=== PATIENT | male | born 1935 | race Caucasian/White ===

== ENCOUNTER 2023-12-20 12:43 | Inpatient (IN) | payer MEDICARE ==
[2023-12-20] MEDS ORDERED: guaiFENesin 100 MG/5 ML Soln 5 ML UD Cup PO PRN (13:19)
[2023-12-20] MEDS ORDERED: Calcium Carbonate 500 MG Tab.Chew PO PRN (13:19)
[2023-12-20] MEDS: Cyclobenzaprine 10 MG Tab PO PRN (14:45)
[2023-12-20] MEDS: Acetaminophen 325 MG Tab PO PRN (14:46)
[2023-12-20] MEDS: LIDOCAINE PATCH TRDERM SCH (21:19)
[2023-12-21] MEDS: Lidocaine 4% 1 each Patch TOP SCH (09:31)
[2023-12-21] MEDS: Multivitamin Tab PO SCH (09:34)
[2023-12-21] MEDS: Rivaroxaban 15 MG Tab PO SCH (09:34)
[2023-12-21] MEDS: atorvaSTATin 10 MG Tab PO SCH (09:34)
[2023-12-21] MEDS: Cholecalciferol (Vitamin D3) 25 MCG Tab PO SCH (09:35)
[2023-12-21] MEDS: Bisoprolol 5 MG Tab PO SCH (09:35)
[2023-12-21] MEDS: amLODIPine 5 MG Tab PO SCH (09:35)
[2023-12-22 21:10] LABS: BILIRUBIN,URINE NEGATIVE (NEGATIVE); GLUCOSE,URINE NORMAL (NORMAL); KETONES,URINE NEGATIVE (NEGATIVE); LEUKOCYTE ESTERASE,URINE LARGE (NEGATIVE); NITRITE,URINE POSITIVE (NEGATIVE); OCCULT BLOOD,URINE MODERATE (NEGATIVE); PROTEIN,URINE 100 mg/dL (NEGATIVE); UROBILINOGEN,URINE NORMAL (NEGATIVE)
[2023-12-22 21:19] LABS: COLOR,URINE YELLOW (YELLOW)
[2023-12-22 21:20] LABS: APPEARANCE,URINE CLOUDY (CLEAR)
[2023-12-22 21:21] LABS: BACTERIA,URINE MANY (NS); SQUAMOUS EPITHELIAL CELLS,UR OCCASIONAL (NS,R,O); WBC,URINE 50-75 (0-5)
[2023-12-22] MEDS: Melatonin 3 MG Tab PO PRN (22:07)
[2023-12-22] MEDS: Sulfamethoxazole/Trimethoprim 800-160 MG Tab PO ONE (22:07)
[2023-12-23 09:41] LABS: BASOPHILS PERCENT AUTO 0.8 % (0.3-3.8); EOSINOPHILS ABSOLUTE AUTO 0.2 x10-3/uL (0.0-0.6); HEMATOCRIT 38.7 % (38.3-50.1); HEMOGLOBIN 12.9 g/dL (12.9-17.7); LYMPHOCYTES ABSOLUTE AUTO 1.6 x10-3/uL (0.5-4.5); MEAN CORPUSCULAR HEMOGLOBIN 30.5 pg (27.0-33.3); MEAN CORPUSCULAR HGB CONC 33.3 g/dL (28.7-35.3); MEAN CORPUSCULAR VOLUME 91.7 fL (80.8-98.7); MONOCYTES ABSOLUTE AUTO 0.4 x10-3/uL (0.0-1.2); MONOCYTES PERCENT AUTO 8.4 % (5.5-15.2); NEUTROPHILS ABSOLUTE AUTO 2.9 x10-3/uL (1.7-6.9); NEUTROPHILS PERCENT AUTO 55.8 % (40.3-71.8); PLATELET COUNT,PLT 180 x10(3)uL (117-477); RED BLOOD CELL COUNT 4.22 x10(6)uL (3.90-5.90); RED CELL DISTRIBUTION WIDTH 14.2 % (12.4-15.0); WHITE BLOOD CELL COUNT,WBC 5.2 x10-3/uL (3.2-10.1)
[2023-12-23 09:48] LABS: BLOOD UREA NITROGEN,BUN 29 mg/dL (7-18); BUN/CREATININE RATIO 17.1 (9-20); CALCIUM 8.3 mg/dL (8.6-10.2); CARBON DIOXIDE,CO2 26 mmol/L (21-32); CHLORIDE,CL 104 mmol/L (100-110); CREATININE 1.7 mg/dL (0.70-1.30); EST CRCL DRUG DOSING (CG) 24.17 mL/min; ESTIMATED GFR 38 mL/min (>60); GLUCOSE RANDOM 150 mg/dL (80-116); POTASSIUM,K 4.6 mmol/L (3.5-5.3); SODIUM,NA 138 mmol/L (135-145)
[2023-12-23] MEDS: Ciprofloxacin 500 MG Tab PO SCH (10:03)
[2023-12-23] MEDS: Nystatin Topical Powder 15 GM Bottle TOP SCH (14:22)
[2023-12-24] MEDS: Sulfamethoxazole/Trimethoprim 800-160 MG Tab PO SCH (09:34)
[2023-12-24] MEDS: Polyethylene Glycol 3350 Powder 17 GM Packet PO PRN (12:29)
[2023-12-25] MEDS ORDERED: Furosemide 40 MG Tab PO PRN (13:38)
[2023-12-25] MEDS: [UNRECOGNIZED DRUG - OTHER] PO SCH (14:53)
[2023-12-25] MEDS: Menthol 10%/Methyl Salicylate 30% 85 GM Tube TOP PRN (22:20)
[2023-12-26] MEDS: Saccharomyces Boulardii (Probiotic) 250 MG Cap PO SCH (08:50)
[2023-12-26] MEDS: Furosemide 40 MG Tab PO ONE (10:59)
[2023-12-27] MEDS: Furosemide 20 MG Tab PO SCH (09:11)
[2023-12-27] MEDS: MULTIVITAMIN PO SCH (09:12)
[2023-12-28] MEDS: PAIN A TRATE TOP PRN (10:32)
[2023-12-31] MEDS: Magnesium Hydroxide 400 MG/5 ML Susp 30 ML Cup PO PRN (15:24)
== END 2024-01-01 16:30 | disposition home health service (06) | DRG 948 ==
LOC: FB.MS 12:43
PROVIDERS: ADMIT Family Medicine; ATTEND Internal Medicine
DX: R53.81 Other malaise (principal); I13.0 Hypertensive heart and chronic kidney disease with heart failure and stage 1 through stage 4 chronic kidney disease, or unspecified chronic kidney disease; I50.42 Chronic combined systolic (congestive) and diastolic (congestive) heart failure; N18.30 Chronic kidney disease, stage 3 unspecified; I25.10 Atherosclerotic heart disease of native coronary artery without angina pectoris; G47.33 Obstructive sleep apnea (adult) (pediatric); E78.5 Hyperlipidemia, unspecified; I73.9 Peripheral vascular disease, unspecified; G89.29 Other chronic pain; M54.50 Low back pain, unspecified; I48.0 Paroxysmal atrial fibrillation; L89.151 Pressure ulcer of sacral region, stage 1; Z79.01 Long term (current) use of anticoagulants; Z85.46 Personal history of malignant neoplasm of prostate; Z86.010 Personal history of colon polyps; Z95.1 Presence of aortocoronary bypass graft
CPT/HCPCS: 36415; 51701; 51702; 80048; 81001; 85025; 87086; 87088; 87186; 97110-GP; 97116-GP; 97161-GP; 97165-GO; 97530-GO; 97530-GP; 97535-GO; 99305; 99307; 99315; A9270-GY; C1758